=== PATIENT | male | born 1940 | race Caucasian/White ===

== ENCOUNTER 2023-08-19 16:21 | Outpatient (CLI) | payer MEDICARE, SELFPAY | END 2023-08-19 23:59 | LOC: LAB.DROPOF 16:21 | PROVIDERS: PCP Urology; Visit Provider Urology | DX: B96.29 Other Escherichia coli [E. coli] as the cause of diseases classified elsewhere; R35.1 Nocturia | CPT/HCPCS: 87086 ==

== ENCOUNTER 2023-08-23 10:12 | Outpatient (CLI) | payer MEDICARE, SELFPAY ==
[2023-08-23 11:15] LABS: Blood Urea Nitrogen 20 mg/dl (9-20); Estimated Glomerular Filt Rate 58 ml/min (>60); GFR (African American) 70 ML/MIN (>60)
[2023-08-24 15:50] LABS: Testosterone,Total 496 ng/dL (264-916)
[2023-08-28 18:10] LABS: Free Testosterone (Direct) 8.2 pg/mL (6.6-18.1); Testosterone, Total, LC/MS 508.1 ng/dL (264.0-916.0)
== END 2023-08-23 23:59 ==
LOC: LAB 10:15
PROVIDERS: PCP Nurse Practitioner Family; Visit Provider Urology
DX: N40.0 Benign prostatic hyperplasia without lower urinary tract symptoms (principal); N39.0 Urinary tract infection, site not specified
CPT/HCPCS: 36415; 82565; 84403; 84520